=== PATIENT | male | born 1945 | race Caucasian/White ===

== ENCOUNTER 2016-09-12 08:52 | Day surgery (SDC) | payer OTHER ==
[~2016-09-12 08:52] MED LIST: Lactated Ringers 1,000 ML IV SCH; Lidocaine 1%/Sod Bicarbonate in NS 8.4% 1 ML Syringe PRN; Sodium Chloride 0.9% 10 ML Syringe FLUSH PRN
--- NOTE | 2016-09-12 10:09 | PCM.PREANE ---
Preanesthetic Assessment - Anesthesia/Transfusion/Family Hx Anesthesia History: Prior Anesthesia Without Reaction Family History of Anesthesia Reaction: No Transfusion History: No Prior Transfusion(s) Intubation History: Unknown - Review of Systems General: No Symptoms Pulmonary: No Symptoms Cardiovascular: No Symptoms Gastrointestinal: No symptoms Neurological: No Symptoms Other: Reports: None - Physical Assessment NPO Status Date: 09/11/16 NPO Status Time: 20:00 Pulse: 59 O2 Sat by Pulse Oximetry: 97 Respiratory Rate: 18 Blood Pressure: 134/69 Temperature: 98.1 C Vital Signs: Last Vital Signs Temp 36.7 C 09/12/16 09:00 Pulse 59 L 09/12/16 09:00 Resp 18 09/12/16 09:00 BP 134/69 09/12/16 09:00 Pulse Ox 97 09/12/16 09:00 Height: 1.78 m Weight: 100.698 kg ASA Class: 2 Mental Status: Alert & Oriented x3 Airway Class: Mallampati = 2 Dentition: Reports: Dentures (top) Thyro-Mental Finger Breadths: 3 Mouth Opening Finger Breadths: 3 ROM/Head Extension: Full Lungs: Clear to auscultation Cardiovascular: Regular Rate, Murmurs - Allergies Allergies/Adverse Reactions: Allergies Allergy/AdvReac Type Severity Reaction Status Date / Time atorvastatin [From Lipitor] Allergy Muscle Verified 09/12/16 09:27 Aches - Anesthesia Plan Beta Santiago: Metoprolol Med Last Dose Date: 09/11/16 Med Last Dose Time: 06:30 - Acknowledgements Anesthesia Type Planned: MAC Pt an Appropriate Candidate for the Planned Anesthesia: Yes Alternatives and Risks of Anesthesia Discussed w Pt/Guardian: Yes Pt/Guardian Understands and Agrees with Anesthesia Plan: Yes PreAnesthesia Questionnaire HEENT History: Reports: Other (See Below) Other HEENT History: wears dentures Cardiovascular History: Reports: Heart Valve Replacement (aortic and mitral valve, 2006), High Cholesterol, Hypertension, AR (pt states AR in 1997), Pacemaker, Other (See Below) Other Cardiovascular History: endocarditis Respiratory History: Reports: Asthma (pt denies asthma, states was told he had it as a kid), Sleep Apnea (pt uses CPAP) Gastrointestinal History: Reports: Colon Polyp, Hemorrhoids Genitourinary History: Reports: None COMMUNICATION ANALYST History: Reports: None Musculoskeletal History: Reports: Arthritis, RA Neurological History: Reports: None Psychiatric History: Reports: None, Anxiety, PTSD (pt does have a service dog present) Endocrine/Metabolic History: Reports: Hypothyroidism Hematologic History: Reports: None Immunologic History: Reports: None Oncologic (Cancer) History: Reports: None Dermatologic History: Reports: None - Past Surgical History Head Surgeries/Procedures: Reports: None HEENT Surgical History: Reports: Cataract Surgery, Tonsillectomy Cardiovascular Surgical History: Reports: Pacer, Valve Replacement, Other (See Below) Other Cardiovascular Surgeries/Procedures: mitral and aortic valve replacement GI Surgical History: Reports: Cholecystectomy, Colonoscopy, Hernia, Inguinal, Other (See Below) Other GI Surgeries/Procedures: hemorrhoidectomy Female Surgical History: Reports: None Male Surgical History: Reports: Vasectomy Endocrine Surgical History: Reports: None Neurological Surgical History: Reports: None Musculoskeletal Surgical History: Reports: None Oncologic Surgical History: Reports: None Dermatological Surgical History: Reports: None - SUBSTANCE USE Smoking Status *Q: Former Smoker Recreational Drug Use History: No - HOME MEDS Home Medications: Home Meds Cholecalciferol Crystals 100 mg PO BID PRN 09/11/16 [History] Docusate Sodium [Colace] 100 mg PO BID 09/11/16 [History] Levothyroxine [Synthroid] 88 mcg PO DAILY 09/11/16 [History] Lisinopril 20 mg PO BID 09/11/16 [History] Metoprolol Tartrate 12.5 mg PO BID 09/11/16 [History] Viagra 100 mg PO ASDIRECTED PRN 09/11/16 [History] atorvaSTATin Calcium [Atorvastatin Calcium] 20 mg PO DAILY 09/11/16 [History] - CURRENT (IN HOUSE) MEDS Current Meds: Current Medications Lactated Ringer's (Ringers, Lactated) 1,000 mls @ 125 mls/hr IV ASDIRECTED XIN Stop: 09/12/16 23:00 Last Admin: 09/12/16 09:20 Dose: 125 mls/hr Lidocaine/Sodium Bicarbonate (Buffered Lidocaine 1% In Ns 8.4%) 0.25 ml .XX ONETIME PRN PRN Reason: Prior to IV Start Stop: 09/12/16 18:00 Last Admin: 09/12/16 09:20 Dose: 0.25 ml Sodium Chloride (Saline Flush) 10 ml FLUSH ASDIRECTED PRN PRN Reason: Keep Vein Open Stop: 09/12/16 18:00
[2016-09-12] MEDS ORDERED: fentaNYL 100 MCG/2 ML SDV ONE (11:27)
[2016-09-12] MEDS ORDERED: Propofol 200 MG/20 ML SDV ONE (11:27)
[2016-09-12 12:12] VITALS: BP 105/75
--- NOTE | 2016-09-12 12:13 | PCM48HPAN ---
Post Anesthesia Note - EVALUATION WITHIN 48HRS OF ANESTHETIC Vital Signs in Normal Range: Yes Patient Participated in Evaluation: Yes Respiratory Function Stable: Yes Airway Patent: Yes Cardiovascular Function Stable: Yes Hydration Status Stable: Yes Pain Control Satisfactory: Yes Nausea and Vomiting Control Satisfactory: Yes Mental Status Recovered: Yes
--- NOTE | 2016-09-12 12:16 | PCM.OPNOTE ---
- General Post-Op/Procedure Note Date of Surgery/Procedure: 09/12/16 Operative Procedure(s): Colonoscopy with cold forceps polypectomy 1 of a very small rectal polyp Findings: 1. Colonic diverticulosis 2. Mild prostate hypertrophy 3. Diminutive 5 mm rectal polyp Pre Op Diagnosis: Screening colonoscopy, History of hesitancy Post-Op Diagnosis: 1. Colonic diverticulosis. 2. Rectal polyp. 3. Prostatic hypertrophy Anesthesia Technique: MAC, Moderate Sedation Primary Surgeon: Ethan Lara Pathology: Rectal polyp EBL in mLs: 0 Complications: None Condition: Good Free Text/Narrative:: After adequate IV sedation and analgesia was obtained the patient was placed on his left side. Perianal inspection and digital rectal examination revealed mild prostate hypertrophy. A lubricated colonoscope was inserted into the rectum and advanced under direct vision to the cecum without difficulty. Cecum, right colon , transverse and descending colons were remarkable for scattered uncomplicated diverticuli throughout the colon. The sigmoid had the largest and most numerous diverticuli which were also uncomplicated. There are no mass lesions or inflammatory changes seen in these areas. The rectum had a very small polyp which was removed with cold forceps. The retroflexed view in the rectum was unremarkable. Air was removed as a finished procedure which he tolerated well. Wastewater Project Manager photographs were taken for the patient and for the record.
== END 2016-09-12 12:39 | disposition home or self-care (01) ==
LOC: JD.SDS 08:52
PROVIDERS: ATTEND Surgery
PROC: 0DBP8ZX Excision of Rectum, Via Natural or Artificial Opening Endoscopic, Diagnostic (ICD-10-PCS; principal; 2016-09-12)
DX: Z87.19 Personal history of other diseases of the digestive system (principal); K62.1 Rectal polyp; K57.30 Diverticulosis of large intestine without perforation or abscess without bleeding; M19.90 Unspecified osteoarthritis, unspecified site; J45.909 Unspecified asthma, uncomplicated; I10 Essential (primary) hypertension; E78.00 Pure hypercholesterolemia, unspecified; E03.9 Hypothyroidism, unspecified; G47.30 Sleep apnea, unspecified; N40.0 Benign prostatic hyperplasia without lower urinary tract symptoms
CPT/HCPCS: 45380; 88305; J3010; J7120; 00810; J2704

== ENCOUNTER 2024-09-09 12:52 | Emergency (ER) | payer OTHER ==
[2024-09-09 14:50] VITALS: BP 139/79; PULSE 87
== END 2024-09-09 14:40 | disposition home or self-care (01) ==
LOC: JD.ED 12:52
DX: S22.41XA Multiple fractures of ribs, right side, initial encounter for closed fracture (principal); I10 Essential (primary) hypertension; E78.00 Pure hypercholesterolemia, unspecified; E03.9 Hypothyroidism, unspecified; Z79.890 Hormone replacement therapy; Z79.899 Other long term (current) drug therapy; Z90.49 Acquired absence of other specified parts of digestive tract; W54.1XXA Struck by dog, initial encounter
CPT/HCPCS: 71101-26-RT; 71101-RT; 99283; 99284